=== PATIENT | female | born 1995 | race African-American/Black ===

== ENCOUNTER 2019-02-12 19:10 | Emergency (ER) | payer SELFPAY ==
[~2019-02-12] VITALS: Ht 157.5 cm; Wt 57.0 kg
[2019-02-12] MEDS ORDERED: IBUPROFEN 600MG TABLET PO ONE (22:15)
[2019-02-13 00:10] VITALS: BP 117/82
== END 2019-02-13 00:11 | disposition home or self-care (01) ==
LOC: ER 19:10
DX: S16.1XXA Strain of muscle, fascia and tendon at neck level, initial encounter (principal); M35.2 Behcet's disease; Z90.49 Acquired absence of other specified parts of digestive tract; V44.5XXA Car driver injured in collision with heavy transport vehicle or bus in traffic accident, initial encounter; Y93.89 Activity, other specified; Y92.488 Other paved roadways as the place of occurrence of the external cause
CPT/HCPCS: 72040; 81025; 99283; Z7610